=== PATIENT | male | born 1945 | race Caucasian/White ===

== ENCOUNTER 2019-07-02 00:24 | Emergency (ER) | payer MEDICARE ==
--- NOTE | 2019-07-02 01:04 | Emergency Department Record ---
History of Present Illness - General Chief Complaint: Wound, puncture Stated Complaint: BACK OF HEADING BLEEDING Time Seen by Provider: 07/02/19 00:32 Source: Patient Mode of Arrival: Ambulatory Limitations: No limitations - History of Present Illness Initial Commments: 74 yo male present with bleeding from a sore that has been on the base of the posterior scalp for about a month. He thinks he might have scratched it working outside. Over the month he has scratched it several times and it has bleed. The bleeding has not stopped over the last 5 hours. No pus, no redness during the last month. He is not on blood thinners. -: Hour(s) Location: Scalp Associated Symptoms: None Treatments Prior to Arrival: Bandage - [place] Coma Scale Eye Response: (4) Open spontaneously Motor Response: (6) Obeys commands Verbal Response: (5) Oriented Luis Daniel Total: 15 - Related Data Home Medications Medication Instructions Recorded Confirmed Last Taken Amlodipine Besylate [Norvasc] 5 mg PO DAILY 07/02/19 07/02/19 07/01/19 Atorvastatin Calcium [Lipitor] 40 mg PO DAILY 07/02/19 07/02/19 07/01/19 Finasteride [Proscar] 5 mg PO DAILY 07/02/19 07/02/19 07/01/19 Lisinopril 40 mg PO DAILY 07/02/19 07/02/19 07/01/19 Multivitamin [Multi-Vitamin Daily] 1 each PO DAILY 07/02/19 07/02/19 07/01/19 [place]-3/Dha/Epa/Fish Oil [Fish Oil 1 each PO DAILY 07/02/19 07/02/19 07/01/19 1,360 mg Softgel] Saw [place] Fruit [Saw [place]] 450 mg PO DAILY 07/02/19 07/02/19 07/01/19 Tamsulosin HCl [Flomax] 0.4 mg PO DAILY 07/02/19 07/02/19 07/01/19 Allergies Allergy/AdvReac Type Severity Reaction Status Date / Time No Known Drug Allergies Allergy Verified 07/02/19 00:43 Travel Screening - Travel/Exposure Within Last 30 Days Have you traveled within the last 30 days?: No - Travel Symptoms Symptom Screening: None Review of Systems Constitutional: Denies: Chills, Fever, Malaise, Weakness Eyes: Denies: Eye discharge ENT: Denies: Congestion, Throat pain Respiratory: Denies: Cough, Dyspnea Cardiovascular: Denies: Chest pain Endocrine: Denies: Fatigue Gastrointestinal: Denies: Abdominal pain, Diarrhea, Nausea, Vomiting Genitourinary: Denies: Dysuria, Frequency Musculoskeletal: Denies: Arthralgia, Myalgia Skin: Reports: As per HPI, Lesions Neurological: Denies: Headache Psychiatric: Denies: Anxiety Hematological/Lymphatic: Denies: Easy bleeding, Easy bruising Past Medical History - SOCIAL HISTORY Smoking Status: Never smoker Alcohol Use: None Drug Use: None - RESPIRATORY Hx Respiratory Disorders: No - CARDIOVASCULAR Hx Cardio Disorders: Yes Hx Hypertension: Yes Comment:: HLD - GI Hx GI Disorders: No - Hx Genitourinary Disorders: Yes Hx Prostate Problems: Yes - ENDOCRINE Hx Endocrine Disorders: No - MUSCULOSKELETAL Hx Musculoskeletal Disorders: No - PSYCH Hx Psych Problems: No - HEMATOLOGY/ONCOLOGY Hx Hematology/Oncology Disorders: No Family Medical History Any Significant Family History?: No Family Hx Comment (NOT TO BE USED IN PLACE OF ITEMS BELOW): denies Physical Exam - General General Appearance: Alert, Oriented x3, Cooperative, No acute distress Limitations: No limitations - Head Head exam: Atraumatic, Normal inspection Image of Face/Head: 1 - 4mm abrasion, slightly raised, no pus, no erythema, no signs of FB or infection, oozing blood - Eye Eye exam: Normal appearance. negative: Conjunctival injection - ENT ENT exam: Normal exam Ear exam: Normal external inspection Nasal Exam: Normal inspection Mouth exam: Normal external inspection - Neck Neck exam: Normal inspection - Respiratory Respiratory exam: negative: Prolonged expiratory, Respiratory distress - Neurological Neurological exam: Alert, Oriented X3 - Psychiatric Psychiatric exam: Normal affect, Normal mood - Skin Skin exam: Abrasion Course - Reevaluation(s) Reevaluation #1: The superficial skin appears to be very small abrasion like skin tear with oozing bleeding The area was infiltrated with lidocaine with epinephrine Topical TLE was applied After 10 minutes silver nitrate was used to gently cauterize the area with resolution of the bleeding Due to the area being under some tension and risk for rebleeding the area was sealed with Dermabond as well We discussed the unusual nature of a sore lasting that long I recommend one week follow up with PCP to ensure healing, if not healing consider dermatology follow up for the persistent sore 07/02/19 00:51 Disposition Disposition: Discharge Clinical Impression: Abrasion Disposition: Home, Self-Care Condition: (1) Good Instructions: Abrasion (ED) Additional Instructions: Call your family doctor to recheck the area to check for proper healing You may need to see a propulsion engineer if the area does not heal completely Hold constant pressure if the area rebleeds Forms: Patient Portal Access Time of Disposition: 01:05 Quality - Quality Measures Quality Measures: N/A - Blood Pressure Screening Does Patient Have Any of the Following: Active Dx of HTN Blood Pressure Classification: Hypertensive Reading Systolic Measurement: 164 Diastolic Measurement: 93 Screening for High Blood Pressure: Patient Exclusion, Hx of HTN [[id number]]
== END 2019-07-02 01:20 | disposition home or self-care (01) ==
LOC: ER 00:24
DX: S00.01XA Abrasion of scalp, initial encounter (principal); W22.8XXA Striking against or struck by other objects, initial encounter; Y93.H9 Activity, other involving exterior property and land maintenance, building and construction; I10 Essential (primary) hypertension
CPT/HCPCS: 99283